=== PATIENT | female | born 1995 | race Hispanic/Latino ===

== ENCOUNTER 2025-06-18 20:31 | Inpatient (IN) | payer BC ==
[2025-06-18 20:52] VITALS: BMI 35.4
[2025-06-18 21:40] LABS: Hematocrit 32.0 % (34.9-44.5); Hemoglobin 10.1 g/dL (12.0-15.5); Mean Corpuscular Hemoglobin 24.8 pg (27.0-33.0); Mean Corpuscular Volume 78.4 fL (81.6-98.3); Platelet Count 308 10x3/uL (150-450); Red Blood Cell (RBC) Count 4.08 10x6/uL (3.90-5.03); White Blood Cell (WBC) Count 12.78 10x3/uL (3.5-10.5)
[2025-06-18] MEDS ORDERED: hydrALAZINE 20 MG/ML VIAL SLOW IVP PRN ×2 (21:41→23:28)
[2025-06-18] MEDS ORDERED: Tranexamic Acid 1,000 MG/10 ML VIAL IVP PRN (21:41)
[2025-06-18] MEDS ORDERED: Ondansetron PF 4 MG/2 ML Vial IVP PRN ×2 (21:41→23:28)
[2025-06-18] MEDS ORDERED: Methylergonovine 0.2 MG/ML VIAL IM PRN (21:41)
[2025-06-18] MEDS ORDERED: Ibuprofen 800 MG TAB PO PRN (21:41)
[2025-06-18] MEDS ORDERED: Diphenoxylate HCl/Atropine Tablet PO PRN (21:41)
[2025-06-18] MEDS ORDERED: Lidocaine 1% (PF) 30 ML VIAL SC PRN (21:41)
[2025-06-18] MEDS ORDERED: Acetaminophen 500 MG TAB PO PRN (21:41)
[2025-06-18] MEDS ORDERED: Carboprost 250 MCG/ML AMP IM PRN (21:41)
[2025-06-18] MEDS ORDERED: Oxytocin 30 units/NS 500 ML 500 ML IV SCH ×4 (21:45→23:28)
[2025-06-18] MEDS ORDERED: Benzocaine-Menthol 82.5 ML CAN TOP PRN (23:28)
[2025-06-18] MEDS ORDERED: Milk Of Magnesia 30 ML UDCUP PO PRN (23:28)
[2025-06-18] MEDS ORDERED: Bisacodyl 10 MG SUPP PR PRN (23:28)
[2025-06-18] MEDS ORDERED: HYDROcodone/Acetaminophen 5/325 mg Tablet PO PRN ×2 (23:28)
[2025-06-18 23:43] LABS: Hep B Surf Ag - L&D Non-Reactive S/CO (NonReactive)
[2025-06-18 23:46] LABS: Syphilis Antibody Index 0.31 S/CO (<1.00 Non-Reactive)
[2025-06-19] MEDS: Oxytocin 30 units/NS 500 ML 500 ML ONE (00:16)
[2025-06-19] MEDS: Lidocaine 1% (PF) 30 ML VIAL ONE (00:16)
[2025-06-19] MEDS: Ibuprofen 800 MG TAB PO SCH (06:00)
[2025-06-19] MEDS: Ferrous Sulfate 325 MG TAB PO SCH (09:36)
[2025-06-19] MEDS: Boostrix 0.5 ML (Tdap) VIAL (>/=7 yrs of age) IM ONE (19:17)
[2025-06-20 08:37] VITALS: BP 117/74; TEMP 98
== END 2025-06-20 12:05 | disposition home or self-care (01) | DRG 807 ==
LOC: CSHLD/OP 20:31 → CSHLD 21:27 → CSHPP 23:15
PROVIDERS: ADMIT Obstetrics & Gynecology; ATTEND Obstetrics & Gynecology
PROC: 10E0XZZ Delivery of Products of Conception, External Approach (ICD-10-PCS; principal; 2025-06-18)
PROC: 0HQ9XZZ Repair Perineum Skin, External Approach (ICD-10-PCS; 2025-06-18)
DX: O70.0 First degree perineal laceration during delivery (principal); Z37.0 Single live birth; Z3A.39 39 weeks gestation of pregnancy
CPT/HCPCS: 36415; 85027; 86780; 86850; 86900; 86901; 87340; 99285